=== PATIENT | male | born 2005 | race Caucasian/White ===

== ENCOUNTER 2023-02-24 19:19 | Emergency (ER) | payer BC, SELFPAY ==
--- NOTE | ~2023-02-24 | XR_ITS ---
XR foot RT min 3V DATE: 02/24/2023 19:58 INDICATION: Lateral plantar pain TECHNIQUE: 4 views COMPARISON: None FINDINGS: No fracture, dislocation, periosteal reaction or bone destruction, joint space narrowing or other significant bony or soft tissue abnormality is detected. IMPRESSION: Negative Reviewed, dictated and finalized at location A. IMPRESSION: Negative
[2023-02-24 19:39] VITALS: BP 144/66; PULSE 80; RESP 14; TEMP 36.7; O2SAT 100
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
== END 2023-02-24 20:40 | disposition home or self-care (01) ==
LOC: ANHED 20:36
PROVIDERS: Emergency Provider Emergency Medicine
DX: S99.921A Unspecified injury of right foot, initial encounter (principal); V86.69XA Passenger of other special all-terrain or other off-road motor vehicle injured in nontraffic accident, initial encounter
CPT/HCPCS: 73630; 99283

== ENCOUNTER 2023-11-13 21:39 | Emergency (ER) | payer OTHER, BC, MEDICAID, SELFPAY ==
--- NOTE | ~2023-11-13 | XR_ITS ---
Left wrist Technique: PA, oblique, lateral, and ulnar deviation views were obtained. Clinical History: Post reduction COMPARISON: 11/13/2023 Findings: Dorsal angulated, and mildly dorsally displaced fracture the distal radius with questionabl e intra-articular extension mild comminution is again present. Osseous alignment is mildly improved f ollowing closed reduction. No ascites fractures on this study process again present. Persistent postt raumatic positive ulnar variance.. Soft tissues are unremarkable. Impression: Mildly improved alignment of distal radial fracture following closed reduction. There is persistent d orsal regulation and dorsal displacement. Minimally displaced ulnar styloid process fracture. Reviewed, dictated and finalized at location M. Impression: Mildly improved alignment of distal radial fracture following closed reduction. There is persistent dorsal regulation and dorsal displacement. Minimally displaced ulnar styloid process fracture.
--- NOTE | ~2023-11-13 | CT_ITS ---
EXAMINATION: CT cervical spine wo con DATE: 11/13/2023 22:03 INDICATION: Neck pain TECHNIQUE: Computed tomography (CT) of the cervical spine was performed without intravenous contrast. The dose-length product (DLP) was 434.47 mGy-cm. Automated exposure control and iterative reconstruc tion technique were employed. COMPARISON: None FINDINGS: No fracture, dislocation, or subluxation. The vertebral body heights, alignment, and interv ertebral disc spaces are normal. The paravertebral soft tissues are unremarkable. The odontoid proces s is intact. IMPRESSION: 1. No acute osseous abnormality. Reviewed, dictated and finalized at location F.
--- NOTE | ~2023-11-13 | XR_ITS ---
EXAMINATION: XR wrist LT 2V INDICATION: Left wrist pain, initial encounter TECHNIQUE: Two views of the left wrist are obtained. COMPARISON: None available FINDINGS: There is a comminuted transverse fracture of the distal radius. A distal radius fracture fr agment articulates with the carpal bones and is dorsally dislocated with respect to the radius. A sep arate fracture fragment projects medial to the distal radius. There is a transverse fracture of the u lnar styloid. No additional fracture is identified. IMPRESSION: 1. Comminuted fracture of the distal radius with dorsal displacement of the carpal bones and distal r adial fracture fragment. 2. Ulnar styloid avulsion. Reviewed, dictated and finalized at location F. IMPRESSION: 1. Comminuted fracture of the distal radius with dorsal displacement of the car pal bones and distal radial fracture fragment. 2. Ulnar styloid avulsion.
--- NOTE | ~2023-11-13 | XR_ITS ---
EXAMINATION: XR shoulder LT min 2V INDICATION: Left shoulder pain TECHNIQUE: Three views of the left shoulder are submitted. COMPARISON: None FINDINGS: Normal alignment. No fracture. Glenohumeral and acromioclavicular joint spaces are normal. Soft tissues are unremarkable. IMPRESSION: 1. No acute osseous abnormality. Reviewed, dictated and finalized at location F.
--- NOTE | ~2023-11-13 | CT_ITS ---
EXAMINATION: CT brain wo con INDICATION: Headache COMPARISON: None TECHNIQUE: Standard unenhanced head CT. The dose-length product (DLP) was 681.00 mGy-cm. The mA was a djusted according to patient size. Iterative reconstruction technique was employed. FINDINGS: No intracranial hemorrhage, acute infarction, or abnormal mass lesion. The ventricles are n ormal. No abnormal mass effect or midline shift. The mendoza-white matter differentiation is normal. The basal cisterns are patent. The orbits are normal. The paranasal sinuses, mastoids and calvarium are normal. IMPRESSION: 1. No acute intracranial abnormality. Reviewed, dictated and finalized at location F.
[2023-11-13 21:42] VITALS: BP 111/93; PULSE 62; RESP 18; TEMP 36.6; O2SAT 100
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
[2023-11-14 01:14] VITALS: BP 126/86; PULSE 65; RESP 18; O2SAT 99
== END 2023-11-14 03:00 | disposition home or self-care (01) ==
PROVIDERS: Emergency Provider Physician Assistant
DX: S52.592A Other fractures of lower end of left radius, initial encounter for closed fracture (principal); S52.612A Displaced fracture of left ulna styloid process, initial encounter for closed fracture; S09.90XA Unspecified injury of head, initial encounter; S49.92XA Unspecified injury of left shoulder and upper arm, initial encounter; V28.49XA Other motorcycle driver injured in noncollision transport accident in traffic accident, initial encounter
CPT/HCPCS: 25605; 25624; 70450; 72125; 73030; 73100; 73110; 99285; A4565